=== PATIENT | female | born 1955 | race Caucasian/White ===

== ENCOUNTER 2018-06-14 05:31 | Inpatient (IN) | payer OTHER ==
[2018-06-14] MEDS ORDERED: NS 1,000 ML IV ONE ×2 (05:37→05:43)
[2018-06-14] MEDS ORDERED: ONDANSETRON 4 MG/2 ML VIAL IVP ONE (05:37)
--- NOTE | 2018-06-14 05:39 | EDPHY ---
H & P Stated Complaint: Vomiting since last night, epigastric abd pain Time Seen by Provider: 06/14/18 05:39 HPI/ROS: HPI CHIEF COMPLAINT: Vomiting and abdominal pain. HISTORY OF PRESENT ILLNESS: Very pleasant 62-year-old female, presents emergency room with mid abdomen pain. She describes it as cramps. It is across her mid abdomen. Nonradiating she has nausea vomiting. She states this started around 9:00 p.m. Last night. Said persistent for 8-9 hours. Multiple episodes of vomiting. Denies any hematemesis. Denies diarrhea, denies chest pain or shortness of breath. She complains of crampy pain mid abdomen. Patient describes abdominal pain 12/02. She states she ate a salad and roast beef last night. She thinks she may have a viral illness. Past Medical History: Depression Past Surgical History: Appendectomy Social History: Denies drugs alcohol tobacco. Family History: Noncontributory ROS REVIEW OF SYSTEMS: 10 Systems were reviewed and negative with the exception of the elements mentioned in the history of present illness. Exam Constitutional vital signs stable however uncomfortable, triage nursing summary reviewed, vital signs reviewed, awake/alert. Eyes normal conjunctivae and sclera, EOMI, PERRLA. HENT normal inspection, atraumatic, moist mucus membranes, no epistaxis, neck supple/ no meningismus, no raccoon eyes. Respiratory clear to auscultation bilaterally, normal breath sounds, no respiratory distress, no wheezing. Cardiovascular rate normal, regular rhythm, no murmur, no edema, distal pulses normal. Gastrointestinal mild tender palpation mid abdomen. no rebound, no guarding, normal bowel sounds, no distension, no pulsatile mass. Genitourinary no CVA tenderness. Musculoskeletal no midline vertebral tenderness, full range of motion, no calf swelling, no tenderness of extremities, no meningismus, good pulses, neurovascularly intact. Skin pink, warm, & dry, no rash, skin atraumatic. Neurologic awake, alert and oriented x 3, AAOx3, moves all 4 extremities equally, motor intact, sensory intact, CN II-XII intact, normal cerebellar, normal vision, normal speech. Psychiatric normal mood/affect. Heme/Lymph/Immune no lymphadenopathy. Differential Diagnosis: Differential diagnosis includes but is not limited to and in no particular order: Bowel obstruction, appendicitis, gallbladder disease, diverticulitis, colitis, enteritis, perforated viscus, gastritis, GERD , esophagitis, urinary tract infection, pyelonephritis, kidney stones Medical Decision Making: Plan for this patient IV establishment IV fluid bolus , IV Dilaudid 0.5 mg for pain control, IV Zofran 4 mg for nausea, basic labs, CT scan abdomen pelvis with IV contrast to help delineate her abdominal pain. Re-evaluation: Patient complaining of epigastric abdominal pain. Her lipase is noted to be very elevated on her labs. This is where she has pain. CT scan abdomen pelvis with IV contrast: Faxed me by direct Radiology at time 7 :16 a.m., This shows likely acute pancreatitis with a 2 mm stone either in the distal common bile duct or accessory pancreatic duct but do no pancreatic or biliary ductal dilatation is seen. Cholelithiasis present without suggestion of cholecystitis. Additionally there is a 9.5 x 9.1 mm likely cyst in the process of the pancreas. Recommend MRI. I spoken consult with Gastroenterology Dr. Sanon. Discussed case the patient has elevated lipase over 20,000, concern for CBD stone. He will consult on the patient. Additionally hospitalist service will be consult. Patient be in admitted for pain control, acute pancreatitis. 7:37 a.m. patient re-evaluated receiving a 2nd dose of Dilaudid for pain control. Patient has lipase greater than 20,000, stone concerning for stuck in the CBD. I have cons the hospitalist service for admssion. Beatriz. Dr. Valdez. Source: Patient - Personal History Current Tetanus Diphtheria and Acellular Pertussis (TDAP): Yes - Medical/Surgical History Hx Asthma: No Hx Chronic Respiratory Disease: No Hx Diabetes: No Hx Cardiac Disease: No Hx Renal Disease: No Hx Cirrhosis: No Hx Alcoholism: No Hx HIV/AIDS: No Hx Splenectomy or Spleen Trauma: No Other PMH: Depression - Social History Smoking Status: Never smoked Constitutional: Initial Vital Signs Temperature (C) 36.6 C 06/14/18 05:32 Heart Rate 72 06/14/18 05:32 Respiratory Rate 16 06/14/18 05:32 Blood Pressure 157/74 H 06/14/18 05:32 O2 Sat (%) 100 06/14/18 05:32 O2 Delivery Mode Nasal Cannula O2 (L/minute) 1 Allergies/Adverse Reactions: No Known Allergies Allergy (Unverified 06/14/18 05:33) Home Medications: Medication Instructions Recorded FLUoxetine [Prozac 20 MG (*)] 60 mg PO DAILY 06/14/18 Ibuprofen [Motrin (*)] 400 mg PO Q6H PRN 06/14/18 lamoTRIgine [LamICTAL 100 MG (*)] 150 mg PO BID 06/14/18 Medical Decision Making - Data Points Laboratory Results: Laboratory Results 06/14/18 05:46 06/14/18 05:46 Medications Given: Enoxaparin Sodium (Lovenox) 40 mg SC DAILY ANGIE Stop: 12/11/18 08:59 Last Admin: 06/14/18 16:13 Dose: 40 mg Hydromorphone HCl (Dilaudid) 0.5 - 1 mg IVP Q2HRS PRN PRN Reason: Pain, Severe Unable to Take PO Stop: 06/24/18 08:49 Last Admin: 06/14/18 19:42 Dose: 1 mg Potassium Chloride/Sodium Chloride (Ns W/ 20 Kcl/L) 1,000 mls @ 100 mls/hr IV CONT ANGIE Stop: 12/11/18 08:59 Last Admin: 06/14/18 18:34 Dose: 1,000 mls Ondansetron HCl (Zofran) 4 mg IVP Q4HRS PRN PRN Reason: Nausea/Vomiting, Can't Take PO Stop: 12/11/18 08:49 Last Admin: 06/14/18 16:12 Dose: 4 mg Discontinued Medications Hydromorphone HCl (Dilaudid) 0.5 mg IVP EDNOW ONE Stop: 06/14/18 05:44 Last Admin: 06/14/18 05:53 Dose: 0.5 mg Hydromorphone HCl (Dilaudid) 1 mg IVP EDNOW ONE Stop: 06/14/18 07:32 Last Admin: 06/14/18 07:35 Dose: 1 mg Sodium Chloride (Ns) 1,000 mls @ 0 mls/hr IV EDNOW ONE; Wide Open PRN Reason: Protocol Stop: 06/14/18 05:38 Last Admin: 06/14/18 05:48 Dose: 1,000 mls Sodium Chloride (Ns) 1,000 mls @ 0 mls/hr IV ONCE ONE PRN Reason: Wide Open Stop: 06/14/18 05:44 Last Admin: 06/14/18 05:51 Dose: 1,000 mls Ondansetron HCl (Zofran) 4 mg IVP EDNOW ONE Stop: 06/14/18 05:38 Last Admin: 06/14/18 05:51 Dose: 4 mg Point of Care Test Results: Chemistry 06/14/18 05:55 POC Troponin I 0.01 ng/mL ng/mL (0.00-0.08) Departure - Departure Disposition: [facility] Inpatient Acute Clinical Impression: Abdominal pain Qualifiers: Abdominal location: epigastric Qualified Code(s): R10.13 - Epigastric pain Vomiting Qualifiers: Vomiting type: unspecified Vomiting Intractability: non-intractable Nausea presence: with nausea Qualified Code(s): R11.2 - Nausea with vomiting, unspecified Pancreatitis Qualifiers: Chronicity: acute Pancreatitis type: other Acute pancreatitis complication: unspecified Qualified Code(s): K85.80 - Other acute pancreatitis without necrosis or infection Condition: Good
[2018-06-14] MEDS ORDERED: HYDROmorphONE/DILAUDID 2 MG/ML INJ IVP ONE ×2 (05:43→07:31)
[2018-06-14] MEDS ORDERED: HYDROmorphONE/DILAUDID 1 MG/ML INJ ONE (05:47)
[2018-06-14 05:58] LABS: PLATELET COUNT 337 10^3/uL (150-400)
[2018-06-14 06:09] LABS: INR 1.03 (0.83-1.16); PROTIME(PATIENT) 13.1 SEC (12.0-15.0)
[2018-06-14] MEDS ORDERED: IOPAMIDOL (ISOVUE-300) 100 ML BTL ONE (06:25)
[2018-06-14] MEDS ORDERED: HYDROmorphONE/DILAUDID 1 MG/ML INJ IVP PRN (08:50)
[2018-06-14] MEDS ORDERED: LORazepam 2 MG/ML INJ IVP PRN (08:50)
[2018-06-14] MEDS ORDERED: PROMETHAZINE HCL 25 MG/ML INJ IVP PRN (08:50)
[2018-06-14] MEDS ORDERED: ACETAMINOPHEN 650 MG SUPP PR PRN (08:50)
[2018-06-14] MEDS: NS W/ 20 KCl/L 1,000 ML IV SCH ×2 (09:45→18:34)
[2018-06-14] MEDS: HYDROmorphONE/DILAUDID 1 MG/ML INJ IVP PRN ×3 (11:25→19:42)
[2018-06-14] MEDS: ONDANSETRON 4 MG/2 ML VIAL IVP PRN (16:12)
[2018-06-14] MEDS: ENOXAPARIN 40 MG/0.4 ML SYR SC SCH (16:13)
--- NOTE | 2018-06-14 17:25 | GHP ---
[f rep st] HISTORY AND PHYSICAL DATE OF ADMISSION: 06/14/2018 CHIEF COMPLAINT: Epigastric pain. HISTORY OF PRESENT ILLNESS: The patient is a pleasant 62-year-old female with a past medical history of depression who presented to the [facility] Room on 06/14/2018, with com plaints of epigastric pain, nausea, and vomiting. Her symptoms started approximately 9 p.m. the even ing prior. CT imaging of her abdomen revealed evidence of acute gallstone pancreatitis with associat ed cholelithiasis and choledocholithiasis. Her pain was controlled with IV Dilaudid. Gastroenterolo gy was consulted and she is being admitted for bowel rest, IV fluids, and pain control. Her lipase w as notable for being over 20,000. PAST MEDICAL HISTORY: Depression. PAST SURGICAL HISTORY: Appendectomy, bilateral hip replacements. MEDICATIONS: Prozac 60 mg daily, Lamictal 150 mg twice a day. ALLERGIES: No known drug allergies. FAMILY HISTORY: Mother and Father both . No family history of gallbladder disease. SOCIAL HISTORY: Patient is nonsmoker and does not drink alcohol. REVIEW OF SYSTEMS: CONSTITUTIONAL: No complaints of any subjective fevers or chills. ENT: No rece nt upper respiratory illnesses. CARDIOVASCULAR: No complaints of any chest pains, palpitations, or syncopal episodes. RESPIRATORY: No complaints shortness of breath or productive cough. GI: Positi ve for nausea and nonbloody emesis, as well as epigastric pain. No diarrhea or bloody stools. : No report of any difficulty with urination. NEUROLOGIC: No complaints of any headaches or focal wea kness. HEMATOLOGIC: No history of any easy bruising or petechia. PSYCHIATRIC: History of depressi on on SSRI therapy. ENDOCRINE: No history of polyuria or heat intolerance. SKIN: No skin rashes o r ecchymoses. MUSCULOSKELETAL: No focal joint pains or swelling. PHYSICAL EXAM: VITAL SIGNS: Temperature 36.8, blood pressure 133/75, heart rate 94, respirations 16 , satting 92% on 1 L nasal cannula. GENERAL: Patient appears comfortable. She is awake, alert, con versant, no acute distress. HEENT: Extraocular movements intact. No scleral icterus is appreciated . NECK: Supple. No thyroid enlargement noted. CHEST: Clear to auscultation with normal respirato ry effort. HEART: Regular rate and rhythm. No murmurs. ABDOMEN: Tender with palpation at the epi gastrium, nondistended, soft. Bowel sounds diminished. : No Healy catheter in place. EXTREMITIE S: No significant pitting edema. NEUROLOGIC: Cranial nerves 2-12 appear grossly intact with 5/5 st rength in extremities. LABS: White blood cell count 15, hemoglobin 11, platelets 337. Sodium 140, potassium 3.7, chloride 105, bicarb 22, BUN 19, creatinine 0.8, glucose 227. INR 1.0. Lipase greater than 20,000. Troponin 0.01. AST 23, ALT 22, alk phos 53, bilirubin is 0.7. Urinalysis with 1+ blood. IMAGING: As detailed above. ASSESSMENT/PLAN: 1. Pancreatitis: Gallstone related. Patient's imaging shows a distal common bile duct stone. [place] [facility] has been consulted for further recommendations. Otherwise, continue with bowel rest, no thing by mouth status, intravenous fluids, and pain control. 2. Pancreatic lesion: Will further evaluate with MRI with and without contrast as recommended. 3. Leukocytosis: Suspect reactive. Monitor for fevers. Trend overnight. 4. Depression: Will anticipate resuming oral Lamictal and Prozac once tolerating a diet. 5. Deep venous thrombosis prophylaxis: Lovenox. DISPOSITION: I will admit her under inpatient status. Anticipate she will be here for 3 to 5 days f or bowel rest, IV fluids, and pain control, and escalating her diet. /[id number]/MODL
--- NOTE | 2018-06-14 18:20 | PDMN ---
Medical Necessity Medical necessity: Pt meets inpt criteria per MD order and MCG M-250, Pancreatitis, 2 days. 62 y/o presenting w/epigastic pain, N/V, admitted w/ pancreatitis, CT imaging shows evidence of acute gallstone pancreatitis w/ associated cholelithiasis and choledocholithiasis, distal common bile duct stone and pancreatic lesion which will be further evaluated w/MRI, Lipase>20, 000. GI consult, IVF, NPO, bowel rest, IV Dilaudid for pain control. Anticipate> 2MN for futher testing and management of above.
--- NOTE | 2018-06-14 22:20 | GCON ---
[f rep st] CONSULTATION GI CONSULTATION DATE OF CONSULTATION: 06/14/2018 REQUESTING PHYSICIAN: Tam Valdez MD. REASON FOR CONSULTATION: Acute pancreatitis with cholelithiasis, rule out choledocholithiasis. HISTORY OF PRESENT ILLNESS: Neeilma is a 62-year-old female with chronic depression, otherwise in [facility], who was admitted to the hospital early this morning after acute onset of epigastric abdomin al pain, nausea and vomiting starting approximately [address] scan of the abdomen early this morning revealed multiple calcified gallstones in the gallbladder, with a 4 mm calcification in the head of the pancreas compatible with a distal common bile duct stone. There were peripancreatic inflammatory changes suggestive of acute pancreatitis, with a 9 x 9.5 mm low-density lesion in the un cinate process of the pancreas compatible with a cyst. There was no free fluid in the abdomen. Ther e were bilateral hip arthroplasties noted. The patient was noted to have a white count of 15.25 and a lipase of greater than 20,000. She has denied any abdominal pain or other GI symptoms leading up t o this episode. She does not drink alcohol or smoke tobacco. MEDICATIONS: Prior to admission, Prozac 60 mg p.o. daily, Lamictal 150 mg p.o. twice daily. ALLERGIES: No known drug allergies. PAST MEDICAL HISTORY: Significant for depression. PAST SURGICAL HISTORY: Significant for appendectomy and bilateral hip replacements. She states her last colonoscopy was approximately 20 years ago, which she states was normal. FAMILY HISTORY: Negative for GI malignancies or gallbladder disease. SOCIAL HISTORY: She is nonsmoker and nondrinker. REVIEW OF SYSTEMS: Negative for comprehensive review of systems, other than the symptoms as noted in the HPI. PHYSICAL EXAMINATION: VITAL SIGNS: Temperature 37.1 Celsius, pulse 107 regular, blood pressure 154/ 84, respiratory rate 18, O2 saturation 95% on 1 L per nasal cannula. GENERAL: The patient is a well -developed, well-nourished female lying in bed in no apparent distress. INTEGUMENT: Clear. HEENT: Head atraumatic, normocephalic. Pupils equal, round, reactive to light. EOMs intact. Sclerae are nonicteric. Nares patent. Mucous membranes moist. Dentition good. NECK: Supple. Trachea midline . LYMPHATICS: No cervical or axillary adenopathy palpated. PULMONARY: Lungs clear to percussion a nd auscultation. CARDIOVASCULAR: Regular rhythm and rate. Normal S1, S2, without murmur. Peripher al pulses strong bilaterally. No pedal edema. GASTROINTESTINAL: Abdomen supple. Positive bowel so unds, though decreased. No liver edge or spleen tip palpable. Mild tenderness in the periumbilical area to deep palpation, without palpable mass or rebound. No fluid or wave noted. EXTREMITIES: Wit hout deformity. NEURO: Patient alert and oriented x3. No focal neurologic deficits. LABS: White count 15.26, hemoglobin 11.4, hematocrit 35.4, RDW 13.8, platelets 337,000. Pro-time 13 .1, INR 1.03, PTT 25.5. Electrolytes normal. BUN 19, creatinine 0.8, total bilirubin 0.7, conjugate d bilirubin 0.2, unconjugated 0.5, AST 23, ALT 22, ALP 53, lipase greater than 20,000. CT scan of the abdomen revealed multiple calcified gallstones in the gallbladder, without gallbladder wall thickening. 4 mm calcification in the head of the pancreas as well as a 9 x 9.5 mm low-density lesion in the uncinate process of the pancreas consistent with a cyst. Inflammatory changes around the pancreas consistent with acute pancreatitis. IMPRESSION: 1. Acute gallstone pancreatitis with question of distal common bile duct stone versus calcification in the head of the pancreas. No biliary dilatation noted on CT scan and normal liver enzymes makes r etained common bile duct stone unlikely. 2. Cholelithiasis with calcified stones. 3. Depression. RECOMMENDATIONS: 1. MRCP in a.m. 2. Serial lipase and LFTs. 3. May have sips of clears, otherwise n.p.o. 4. Will follow with you. /[id number]/MODL
[2018-06-15 04:40] LABS: PLATELET COUNT 295 10^3/uL (150-400)
--- NOTE | 2018-06-15 09:27 | ASMTCMCOM ---
CM Note CM Note Notes: Met with Pts and chart reviewed for discharge. Neelima is a 62 years old admitted with c/o epigastric pain, N, & V starting evening 06/13. CT shows Gall stones, pancreatitis, and cholelithiasis. She is on IV fluids, pain control meds and bowel rest for 3-5days per MD. Pt has a history of depression and is on Prozac with Lamictal, had bilateral hip replacements. Pt lives alone in [place], she has a Son Víctor in [place] but she says "He's useless" and a good friend Leslie who brought her to the hospital. CM available for needs. PLAN: home Independently Date Signed: 06/15/2018 09:27 AM Electronically Signed By:Tierra Amos
[2018-06-15] MEDS ORDERED: GADOBUTROL 10 ML VIAL IVP ONE (09:52)
[2018-06-15] MEDS: FLUoxetine 20 MG CAP PO SCH (10:02)
[2018-06-15] MEDS: lamoTRIgine 100 MG TAB PO SCH ×2 (10:02→20:26)
[2018-06-15] MEDS: HYDROmorphONE/DILAUDID 1 MG/ML INJ IVP PRN ×2 (10:26→15:52)
--- NOTE | 2018-06-15 15:01 | SOAPPROG ---
SOFIOR Progress Note Assessment/Plan: Assessment: 1. Probable gallsone pancreatitis, clinically improved. 2. ? small distal CBD stone without biliary obstruction. 3. Abnormal pancreatic duct, differential diagnosis is pancreatic divisum vs cystadenoma. 4. Leukocytosis likely secondary to pancreatitis albeit increased today. Plan: 1. Continue NPO with sips of water. 2. Serial WBC and Lipase. 3. Will discuss MRCP results the Dr Langston concerning EUS/ERCP during this admission. 4. Would recommend lap erick when pancreatitis resolves. Coel Sanon MD [phone] 06/15/18 14:56 Subjective: CC: Pancreatitis, Interval HPI: Patient without N/V or significant abdominal pain. C/O most neck pain today. Objective: Vital Signs Temp Pulse Resp BP Pulse Ox 36.6 C 77 18 132/69 H 90 L 06/15/18 08:00 06/15/18 12:00 06/15/18 12:00 06/15/18 12:00 06/15/18 12:00 Laboratory Results 06/15/18 04:20 06/15/18 04:20 06/14/18 06/15/18 06/16/18 05:59 05:59 05:59 Intake Total 1140 Balance 1140 PT 13.1 SEC (12.0-15.0) 06/14/18 05:46 INR 1.03 (0.83-1.16) 06/14/18 05:46 Laboratory Tests 06/14/18 06/15/18 05:46 04:20 Total Bilirubin 0.7 0.7 AST 23 21 ALT 22 25 Alkaline Phosphatase 53 47 Lipase > 30379 H > 4000 H Physical Exam - Physical Exam General Appearance: WD/WN, alert, no apparent distress Respiratory: lungs clear, normal breath sounds Cardiac/Chest: regular rate, rhythm Abdomen: soft (mildly tender in epigastrium), distended (Mildly) Skin: normal color, warm/dry Neuro/Psych: alert, normal mood/affect, oriented x 3 ICD10 Worksheet Patient Problems: Problems Problem Status Onset Abdominal pain Acute Pancreatitis Acute Vomiting Acute
--- NOTE | 2018-06-15 16:40 | HOSPPROG ---
Hospitalist Progress Note Assessment/Plan: Subjective Follow-up on suspected gallstone pancreatitis. No acute events overnight. Patient states her abdominal symptoms are much improved in overall feeling much better. No nausea or vomiting her. She does come back from MRI at the time of my evaluation. Objective Vital signs as detailed below Physical exam General-awake alert conversant no acute distress, sitting in a chair at the bedside Heart-regular rate and rhythm no murmurs Lungs-Clear to auscultation with normal respiratory effort Abdomen-be soft, nondistended, she tolerated more pressure at the epigastrium than yesterday's exam -no Healy catheter in place Extremities-no significant pitting edema or calf pain with palpation Skin-no concerning skin rashes noted Labs as detailed below Assessment and plan Pancreatitis-suspected gallstone. Probable 3 mm stone noted in the common bile duct at the level duodenum. Will review with Gastroenterology regarding the recommendation for ERCP. Pancreatic lesion-endoscopic ultrasound to be discussed. Leukocytosis-increased overnight but with no fevers. Clinically without any worsening either. Suspecting reactive to pancreatitis. Monitor closely. Depression/anxiety-worsened anxiety this morning. Oral medications resumed. DVT prophylaxis-Lovenox. Disposition-I would anticipate she would be able to be discharged home once medically cleared. Objective: Vital Signs Temp Pulse Resp BP Pulse Ox 36.6 C 82 18 139/70 H 90 L 06/15/18 08:00 06/15/18 16:00 06/15/18 16:00 06/15/18 16:00 06/15/18 16:00 Laboratory Results 06/15/18 04:20 06/15/18 04:20 06/14/18 06/15/18 06/16/18 05:59 05:59 05:59 Intake Total 1140 Balance 1140 PT 13.1 SEC (12.0-15.0) 06/14/18 05:46 INR 1.03 (0.83-1.16) 06/14/18 05:46 ICD10 Worksheet Patient Problems: Problems Problem Status Onset Abdominal pain Acute Pancreatitis Acute Vomiting Acute
[2018-06-15] MEDS: ENOXAPARIN 40 MG/0.4 ML SYR SC SCH (17:11)
[2018-06-15] MEDS: NS W/ 20 KCl/L 1,000 ML IV SCH (20:24)
[2018-06-15] MEDS: ACETAMINOPHEN 325 MG TAB PO PRN (20:26)
[2018-06-16] MEDS: ACETAMINOPHEN 325 MG TAB PO PRN ×2 (03:12→08:55)
[2018-06-16 05:23] LABS: PLATELET COUNT 236 10^3/uL (150-400)
[2018-06-16] MEDS: NS W/ 20 KCl/L 1,000 ML IV SCH ×2 (05:54→20:57)
[2018-06-16] MEDS ORDERED: POTASSIUM CL 10 MEQ TAB PO ONE ×3 (07:31→21:00)
[2018-06-16] MEDS: POTASSIUM Cl (KCl) 100 ML IV SCH ×2 (08:40→09:49)
[2018-06-16] MEDS: FLUoxetine 20 MG CAP PO SCH (08:42)
[2018-06-16] MEDS: lamoTRIgine 100 MG TAB PO SCH ×2 (08:42→20:58)
[2018-06-16] MEDS: ENOXAPARIN 40 MG/0.4 ML SYR SC SCH (08:45)
[2018-06-16] MEDS ORDERED: IOTHALAMATE MEG (CONRAY) 50 ML VIAL IV ONE (12:36)
[2018-06-16] MEDS ORDERED: LR 1,000 ML IV ONE (13:00)
[2018-06-16] MEDS ORDERED: INDOMETHACIN 50 MG SUPP PR ONE (13:10)
--- NOTE | 2018-06-16 13:26 | PDANEPAE ---
ANE Past Medical History - Cardiovascular History Hx Hypertension: No Hx Arrhythmias: No Hx Chest Pain: No Hx Coronary Artery / Peripheral Vascular Disease: No Hx CHF / Valvular Disease: No Hx Palpitations: No - Pulmonary History Hx COPD: No Hx Asthma/Reactive Airway Disease: No Hx Recent Upper Respiratory Infection: No Hx Oxygen in Use at Home: No Hx Sleep Apnea: Yes Sleep Apnea Screening Result - Last Documented: Positive Pulmonary History Comment: Refuses CPAP - Endocrine History Hx Diabetes: No Hypothyroid: No Hyperthyroid: No Obesity: yes, mild - Renal History Hx Renal Disorders: No - Liver History Hx Hepatic Disorders: No - Neurological & Psychiatric Hx Hx Neurological and Psychiatric Disorders: Yes - Chronic Pain History Chronic Pain: Yes ANE Review of Systems Review of Systems: - Exercise capacity Exercise capacity: >=4 METS ANE Patient History - Allergies Allergies/Adverse Reactions: No Known Allergies Allergy (Unverified 06/14/18 05:33) - Home Medications Home Medications: FLUoxetine [Prozac 20 MG (*)] 60 mg PO DAILY 06/14/18 [Last Taken 06/13/18 10:00 ] Ibuprofen [Motrin (*)] 400 mg PO Q6H PRN 06/14/18 [Last Taken 06/13/18] lamoTRIgine [LamICTAL 100 MG (*)] 150 mg PO BID 06/14/18 [Last Taken 06/13/18 10 :00] - NPO status NPO Since - Liquids (Date): 06/16/18 NPO Since - Liquids (Time): 12:30 NPO Since - Solids (Date): 06/12/18 NPO Since - Solids (Time): 00:00 - Anes Hx Anes Hx: no prior problems - Smoking Hx Smoking Status: Never smoked - Alcohol Use Alcohol Use: Rarely - Family Anes Hx Family Anes Hx: neg - N/A ANE Labs/Vital Signs - Labs Result Diagrams: 06/16/18 04:25 06/16/18 04:25 - Vital Signs Blood Pressure: 143/80 Heart Rate: 68 Respiratory Rate: 16 O2 Sat (%): 92 Height: 157.48 cm Weight: 76.204 kg ANE Physical Exam - Airway Neck exam: FROM Mallampati Score: Class 2 Mouth exam: normal dental/mouth exam - Pulmonary Pulmonary: no respiratory distress, no rales or rhonchi, clear to auscultation - Cardiovascular Cardiovascular: regular rate and rhythym, systolic murmur - ASA Status ASA Status: II ANE Anesthesia Plan Anesthesia Plan: general endotracheal anesthesia Total IV Anesthesia: No
[2018-06-16] MEDS ORDERED: fentaNYL 100 MCG/2 ML INJ ONE (13:29)
[2018-06-16] MEDS ORDERED: PROPOFOL 200 MG/20 ML VIAL ONE (13:29)
[2018-06-16] MEDS ORDERED: LIDOCAINE 2% 2 ML INJ ONE ×2 (13:30)
[2018-06-16] MEDS ORDERED: ROCURONIUM 50 MG/5 ML VIAL ONE (13:32)
[2018-06-16] MEDS ORDERED: SUCCINYLCHOLINE CHLORIDE 200 MG/10 ML SYR IVP ONE (13:36)
[2018-06-16] MEDS ORDERED: PHENYLEPHRINE 10 MG/ML SDV ONE (13:55)
[2018-06-16] MEDS ORDERED: HYDROCODONE/APAP 5/325 TAB PO PRN (14:00)
[2018-06-16] MEDS ORDERED: LR 500 ML IV PRN (14:00)
[2018-06-16] MEDS ORDERED: PROMETHAZINE HCL 25 MG/ML INJ IVP PRN (14:00)
[2018-06-16] MEDS ORDERED: NALOXONE HCL 0.4 MG/ML INJ IVP PRN (14:00)
[2018-06-16] MEDS ORDERED: ONDANSETRON 4 MG/2 ML VIAL IVP PRN (14:00)
[2018-06-16] MEDS ORDERED: oxyCODONE IR 5 MG TAB PO PRN (14:00)
[2018-06-16] MEDS ORDERED: ACETAMINOPHEN 500 MG TAB PO PRN (14:00)
[2018-06-16] MEDS ORDERED: PHENYLEPHRINE HCL 100 MCG/ML SYR IVP PRN (14:00)
[2018-06-16] MEDS ORDERED: fentaNYL 100 MCG/2 ML INJ IVP PRN (14:00)
[2018-06-16] MEDS ORDERED: SUGAMMADEX SODIUM 200 MG/2 ML VIAL IVP ONE (14:29)
--- NOTE | 2018-06-16 14:53 | GIREPORT ---
[facility] Surgical Services - Endoscopy Department Patient Name: Neelima Noland Procedure Date: 06/16/2018 1:07 PM Patient Type: Inpatient Attending MD/ ER Physician: Cole Sanon MD Procedure: ERCP Indications: Bile duct stone(s), Abnormal abdominal MRI(? pancreatic divisum, ? bile duct irregularity. Providers: Cole Sanon MD Medicines: General Anesthesia, Indomethacin 100 mg ID Complications: No immediate complications. Description of Procedure: After obtaining informed consent, the scope was passed under direct vis ion. Throughout the procedure, the patient's blood pressure, pulse, and oxyg en saturations were monitored continuously. The Duodenalscope was introduc ed through the mouth, and advanced to the duodenum and used to inject cont rast into the bile duct. The ERCP was accomplished without difficulty. The patient tolerated the procedure well. I personally interpreted the fluo scopy without assisstance and obtained several permittant images. Findings: The upper GI tract was traversed under direct vision without detailed examination. The major papilla was normal. The minor papilla was not fo und. The bile duct was deeply cannulated with the short-nosed traction sphincterotome. Contrast was injected. I personally interpreted the cookie e duct images. There was brisk flow of contrast through the ducts. Image quality was excellent. Contrast extended to the main bile duct. Contras t extended to the gallbladder. Contrast extended to the bifurcation. Cont rast extended to the hepatic ducts. Opacification of the main bile duct, lef t main hepatic duct and right main hepatic duct was successful. The maxim um diameter of the ducts was 11 mm. The common bile duct contained one sto ne, which was 2 mm in diameter. An 11 mm biliary sphincterotomy was made wi th a braided traction (standard) sphincterotome using ERBE electrocautery. T here was no post-sphincterotomy bleeding. The biliary tree was swept with a 12 mm balloon starting at the upper third of the main bile duct, middle third of the main bile duct and lower third of the main duct. One stone was lucio antonio. No stones remained. Estimated Blood Loss: Estimated blood loss: none. Post Op Diagnosis: - The major papilla appeared normal. - Choledocholithiasis was found. Complete removal was accomplished by biliary sphincterotomy and balloon extraction. - A biliary sphincterotomy was performed. - The biliary tree was swept. No other abnormalities in the biliary josé luis e visualized. Recommendation: - [facility]. - Continue present medications. - Clear liquid diet today. - The findings and recommendations were discussed with the surgeon (Maribell Oh MD). Attending Participation: I personally performed the entire procedure. Cole Sanon MD Cole Sanon MD 06/16/2018 2:52:42 PM This report has been signed electronicallyCole Sanon MD Number of Addenda: 0 Note Initiated On: 06/16/2018 1:07 PM [email or web address]
--- NOTE | 2018-06-16 14:56 | SOAPPROG ---
ZACK Progress Note Assessment/Plan: Assessment: 62 FEMALE WITH GALLSTONE PANCREATITIS SP ERCP Plan:WILL ARRANGE LAP JAYLAN FOR THE AM 06/16/18 14:55 Objective: Vital Signs Temp Pulse Resp BP Pulse Ox 36.7 C 68 21 H 114/71 96 06/16/18 14:42 06/16/18 13:59 06/16/18 14:45 06/16/18 14:45 06/16/18 14:45 Laboratory Results 06/16/18 04:25 06/16/18 04:25 06/15/18 06/16/18 06/17/18 05:59 05:59 05:59 Intake Total 1140 1051 Balance 1140 1051 PT 13.1 SEC (12.0-15.0) 06/14/18 05:46 INR 1.03 (0.83-1.16) 06/14/18 05:46 ICD10 Worksheet Patient Problems: Problems Problem Status Onset Abdominal pain Acute Pancreatitis Acute Vomiting Acute
--- NOTE | 2018-06-16 15:03 | POSTANESTH ---
Post Anesthetic Evaluation Cardiovascular Status: Similar to Pre-Op Cond Respiratory Status: Similar to Pre-op Cond. Level of Consciousness/Mental Status: Can Participate in Eval Pain Control: Adequate, Prn Tx Ordered Nausea/Vomiting Control: Adequate, Prn Tx Ordered Complications Possibly Related to Anesthesia: None Noted
--- NOTE | 2018-06-16 16:42 | HOSPPROG ---
Hospitalist Progress Note Assessment/Plan: Subjective Follow-up on suspected gallstone pancreatitis. No acute events overnight. No nausea or vomiting and she feels like her pain is better. Case reviewed with Gastroenterology today and tentative plan for ERCP later today. We did discuss that she will need to have endoscopic ultrasound and likely looking at doing this in the next 1-2 weeks. Objective Vital signs as detailed below Physical exam General-awake alert conversant no acute distress, lying in bed Heart-regular rate and rhythm no murmurs Lungs-Clear to auscultation with normal respiratory effort Abdomen-be soft, nondistended, she tolerated pressure at the epigastrium -no Healy catheter in place Extremities-no significant pitting edema or calf pain with palpation Skin-no concerning skin rashes noted Labs as detailed below Assessment and plan Pancreatitis-suspected gallstone. Probable 3 mm stone noted in the common bile duct at the level duodenum on MRI. ERCP plan for today. Pancreatic lesion-endoscopic ultrasound when able. Leukocytosis-trending downward. No fevers. Clinically without any worsening either. Suspecting reactive to pancreatitis. Monitor closely. Depression/anxiety-worsened anxiety this morning. Oral medications resumed. DVT prophylaxis-Lovenox. Disposition-I would anticipate she would be able to be discharged home once medically cleared. Objective: Vital Signs Temp Pulse Resp BP Pulse Ox 36.7 C 66 12 140/85 H 92 06/16/18 14:42 06/16/18 15:41 06/16/18 15:41 06/16/18 15:41 06/16/18 15:41 Laboratory Results 06/16/18 04:25 06/16/18 04:25 06/15/18 06/16/18 06/17/18 05:59 05:59 05:59 Intake Total 1140 1051 800 Balance 1140 1051 800 PT 13.1 SEC (12.0-15.0) 06/14/18 05:46 INR 1.03 (0.83-1.16) 06/14/18 05:46 ICD10 Worksheet Patient Problems: Problems Problem Status Onset Abdominal pain Acute Pancreatitis Acute Vomiting Acute
[2018-06-16] MEDS ORDERED: cefOXitin SODIUM 2 GM in NS 100 ML IV ONE (16:51)
[2018-06-16] MEDS: ONDANSETRON 4 MG/2 ML VIAL IVP PRN (16:53)
[2018-06-16] MEDS ORDERED: CEPACOL LOZENGE PO PRN (17:03)
--- NOTE | 2018-06-16 19:44 | SOAPPROG ---
ZACK Progress Note Assessment/Plan: Assessment: 62 FEMALE WITH GALLSTONE PANCREATITIS SP ERCP Plan:WILL ARRANGE LAP JAYLAN FOR THE AM 06/16/18 14:55 06/16/18 19:43 PATIENT RECOVERING FROM ERCP WITH REMOVAL OF COMMON DUCT STONE/RISKS AND OPTIONS FULLY DISCUSSED WITH THE PATIENT AND HER FAMILY WHO WISH TO PROCEED WITH LAP CHOLY IN THE A.M. LFTS OKAY/LIPASE DOWN TO 400 FROM 20,000 HEENT NONICTERIC CHEST CLEAR COR REGULAR RHYTHM ABDOMEN SOFT WITH NO REAL TENDERNESS AND POSITIVE BOWEL SOUNDS IMPRESSION GALLSTONE PANCREATITIS/PLAN IS LAP CHOLY PRIOR TO DISCHARGE RISKS AND OPTIONS BEEN FULLY DISCUSSED Objective: Vital Signs Temp Pulse Resp BP Pulse Ox 37.0 C 66 12 148/75 H 94 06/16/18 18:08 06/16/18 18:08 06/16/18 15:41 06/16/18 18:08 06/16/18 18:08 Laboratory Results 06/16/18 04:25 06/16/18 17:27 06/15/18 06/16/18 06/17/18 05:59 05:59 05:59 Intake Total 1140 1051 900 Balance 1140 1051 900 PT 13.1 SEC (12.0-15.0) 06/14/18 05:46 INR 1.03 (0.83-1.16) 06/14/18 05:46 ICD10 Worksheet Patient Problems: Problems Problem Status Onset Abdominal pain Acute Pancreatitis Acute Vomiting Acute
[2018-06-17 05:37] LABS: PLATELET COUNT 257 10^3/uL (150-400)
[2018-06-17] MEDS: ENOXAPARIN 40 MG/0.4 ML SYR SC SCH (07:40)
[2018-06-17] MEDS ORDERED: POTASSIUM CL 10 MEQ TAB PO ONE (07:45)
[2018-06-17] MEDS: lamoTRIgine 100 MG TAB PO SCH ×2 (08:32→21:37)
[2018-06-17] MEDS: FLUoxetine 20 MG CAP PO SCH (08:32)
--- NOTE | 2018-06-17 10:18 | PDANEPAE ---
ANE History of Present Illness gall stone pancreatitis ANE Past Medical History - Cardiovascular History Hx Hypertension: No Hx Arrhythmias: No Hx Chest Pain: No Hx Coronary Artery / Peripheral Vascular Disease: No Hx CHF / Valvular Disease: No Hx Palpitations: No - Pulmonary History Hx COPD: No Hx Asthma/Reactive Airway Disease: No Hx Recent Upper Respiratory Infection: No Hx Oxygen in Use at Home: No Hx Sleep Apnea: Yes Sleep Apnea Screening Result - Last Documented: Positive Pulmonary History Comment: Refuses CPAP - Endocrine History Hx Diabetes: No Hypothyroid: No Hyperthyroid: No Obesity: yes, mild - Renal History Hx Renal Disorders: No - Liver History Hx Hepatic Disorders: No - Neurological & Psychiatric Hx Hx Neurological and Psychiatric Disorders: Yes Neurological / Psychiatric History Comment: depression - GI History Gastrointestinal History Comment: gallstone pancreatitis - Chronic Pain History Chronic Pain: Yes ANE Review of Systems Review of systems is: negative Review of Systems: ANE Patient History - Allergies Allergies/Adverse Reactions: No Known Allergies Allergy (Unverified 06/14/18 05:33) - Home Medications Home medications: home medication list seen and reviewed Home Medications: FLUoxetine [Prozac 20 MG (*)] 60 mg PO DAILY 06/14/18 [Last Taken 06/13/18 10:00 ] Ibuprofen [Motrin (*)] 400 mg PO Q6H PRN 06/14/18 [Last Taken 06/13/18] lamoTRIgine [LamICTAL 100 MG (*)] 150 mg PO BID 06/14/18 [Last Taken 06/13/18 10 :00] - NPO status NPO Since - Liquids (Date): 06/16/18 NPO Since - Liquids (Time): 12:30 NPO Since - Solids (Date): 06/12/18 NPO Since - Solids (Time): 00:00 - Anes Hx Anes Hx: no prior problems - Smoking Hx Smoking Status: Never smoked - Alcohol Use Alcohol Use: Rarely - Family Anes Hx Family Anes Hx: none ANE Labs/Vital Signs - Labs Result Diagrams: 06/17/18 04:35 06/17/18 04:35 - Vital Signs Blood Pressure: 120/67 Heart Rate: 70 Respiratory Rate: 16 O2 Sat (%): 95 Height: 157.48 cm Weight: 76.204 kg ANE Physical Exam - Airway Neck exam: FROM Mallampati Score: Class 2 Mouth exam: normal dental/mouth exam - Pulmonary Pulmonary: no respiratory distress, clear to auscultation - Cardiovascular Cardiovascular: regular rate and rhythym, no murmur, rub, or gallop - ASA Status ASA Status: III ANE Anesthesia Plan Anesthesia Plan: general endotracheal anesthesia
[2018-06-17] MEDS ORDERED: HEPARIN 1000 UNIT/1 ML MDV ONE (10:39)
[2018-06-17] MEDS ORDERED: BUPIVACAINE 0.5% 30 ML SDV ONE (10:39)
[2018-06-17] MEDS ORDERED: ceFAZolin 1 GM/5 ML SYR ONE (10:39)
[2018-06-17] MEDS ORDERED: PROPOFOL 200 MG/20 ML VIAL ONE (11:22)
[2018-06-17] MEDS ORDERED: LIDOCAINE 2% 2 ML INJ ONE ×2 (11:22)
[2018-06-17] MEDS ORDERED: fentaNYL 250 MCG/5 ML INJ ONE (11:22)
[2018-06-17] MEDS ORDERED: ROCURONIUM 50 MG/5 ML VIAL ONE (11:33)
[2018-06-17] MEDS ORDERED: DEXAMETHASONE 4 MG/ML VIAL ONE (11:33)
[2018-06-17] MEDS ORDERED: ONDANSETRON 4 MG/2 ML VIAL ONE (11:33)
[2018-06-17] MEDS ORDERED: KETOROLAC 30 MG/1 ML SDV ONE (12:14)
[2018-06-17] MEDS ORDERED: SUGAMMADEX SODIUM 200 MG/2 ML VIAL IVP ONE (12:15)
[2018-06-17] MEDS ORDERED: NALOXONE HCL 0.4 MG/ML INJ IVP PRN (12:18)
[2018-06-17] MEDS ORDERED: fentaNYL 100 MCG/2 ML INJ IVP PRN (12:18)
--- NOTE | 2018-06-17 12:19 | POSTANESTH ---
Post Anesthetic Evaluation Cardiovascular Status: Normal, Stable Respiratory Status: Normal, Stable Level of Consciousness/Mental Status: Can Participate in Eval Pain Control: Adequate, Prn Tx Ordered Nausea/Vomiting Control: Adequate, Prn Tx Ordered Complications Possibly Related to Anesthesia: None Noted
--- NOTE | 2018-06-17 12:29 | POSTOPPROG ---
Post Op Note Date of Operation: 06/17/18 Surgeon: Edil Oh Furniture Finisher Apprentice: Alisia Hyatt Anesthesiologist: Viky Knox Anesthesia: GET(General Endotracheal) Pre-op Diagnosis: gallstone pancreatitis s/p ercp, cholelithasis Post-op Diagnosis: same Procedure: lap erick Findings: gallbladder wall edema with tons of stones Inf/Abcess present in the surg proc area at time of surgery?: No EBL: Minimal Complications: none Bowel Protocol: N/A Clean Closure Performed: N/A Specimen(s): gallbladder to pathology
[2018-06-17] MEDS ORDERED: HYDROCODONE/APAP 5/325 TAB PO PRN (12:30)
--- NOTE | 2018-06-17 14:06 | ASMTCMCOM ---
CM Note CM Note Notes: 06/17/2018 Case Management Note Reviewed chart, discussed with RN. Pt had lap erick today for gallstone pancreatits s/p ERCP and cholelithasis. There are no therapy evals ordered today. Case Management d/c poc: anticipating independent with follow up as directed. Case Management to follow. Date Signed: 06/17/2018 02:05 PM Electronically Signed By:Ambar Woods RN
--- NOTE | 2018-06-17 16:36 | SOAPPROG ---
SOAP Progress Note Assessment/Plan: Assessment: 1. Gallstone pancreatitis, clinically resolved 2. S/P ERCP, Papillotomy and CBD stone removal. 3. Abnormal pancreatic duct, differential diagnosis is pancreatic divisum vs cystadenoma of uncinate process of pancreas. 4. S/P cholecystectomy today. Plan: 1. Post op care per Dr. Oh. 2. F/U EUS in one month with Dr Langston. Cole Sanon MD [phone] 06/17/18 16:32 Subjective: CC: Cholelithiasis, s/p ERCP and clearance of CBD stone. Interval HPI: Patient feeling better this am. Now S/P lap erick. Objective: Vital Signs Temp Pulse Resp BP Pulse Ox 37.0 C 71 16 135/75 H 87 L 06/17/18 16:26 06/17/18 16:26 06/17/18 16:26 06/17/18 16:26 06/17/18 16:26 Laboratory Results 06/17/18 04:35 06/17/18 04:35 06/16/18 06/17/18 06/18/18 05:59 05:59 05:59 Intake Total 1051 1996 600 Output Total 5 Balance 1051 1996 595 PT 13.1 SEC (12.0-15.0) 06/14/18 05:46 INR 1.03 (0.83-1.16) 06/14/18 05:46 Physical Exam - Physical Exam General Appearance: no apparent distress Respiratory: lungs clear, normal breath sounds Cardiac/Chest: regular rate, rhythm Abdomen: normal bowel sounds, non-tender, soft Skin: normal color, warm/dry Neuro/Psych: normal mood/affect ICD10 Worksheet Patient Problems: Problems Problem Status Onset Abdominal pain Acute Pancreatitis Acute Vomiting Acute
--- NOTE | 2018-06-17 17:45 | HOSPPROG ---
Hospitalist Progress Note Assessment/Plan: Subjective Follow-up on suspected gallstone pancreatitis. No acute events overnight. She had ERCP yesterday and cholecystectomy done today. Postoperatively she appears to be doing quite well and asking about home tomorrow. Objective Vital signs as detailed below Physical exam General-awake alert conversant no acute distress, lying in bed Heart-regular rate and rhythm no murmurs Lungs-Clear to auscultation with normal respiratory effort Abdomen-be soft, nondistended, she tolerated pressure at the epigastrium Extremities-no significant pitting edema or calf pain with palpation Skin-no concerning skin rashes noted Labs as detailed below Assessment and plan Pancreatitis-suspected gallstone. Probable 3 mm stone noted in the common bile duct at the level duodenum on MRI. Here CP done yesterday and patient had cholecystectomy today for multiple stones noted in gallbladder. Possibly could be discharged home if she is able to advance her diet with the plan for short- term follow up with Gastroenterology for endoscopic ultrasound. Pancreatic lesion-endoscopic ultrasound when able. Next week at the earliest. Leukocytosis-trending downward. No fevers. Clinically without any worsening either. Suspecting reactive to pancreatitis. Monitor closely. Depression/anxiety-worsened anxiety this morning. Oral medications resumed. DVT prophylaxis-Lovenox. Disposition-I would anticipate she would be able to be discharged home once medically cleared. Objective: Vital Signs Temp Pulse Resp BP Pulse Ox 36.8 C 63 16 123/70 H 96 06/17/18 17:27 06/17/18 17:27 06/17/18 17:27 06/17/18 17:27 06/17/18 17:27 Laboratory Results 06/17/18 04:35 06/17/18 04:35 06/16/18 06/17/18 06/18/18 05:59 05:59 05:59 Intake Total 1051 1996 800 Output Total 5 Balance 1 1996 795 PT 13.1 SEC (12.0-15.0) 06/14/18 05:46 INR 1.03 (0.83-1.16) 06/14/18 05:46 ICD10 Worksheet Patient Problems: Problems Problem Status Onset Abdominal pain Acute Pancreatitis Acute Vomiting Acute
[2018-06-18] MEDS: NS W/ 20 KCl/L 1,000 ML IV SCH (00:14)
[2018-06-18] MEDS: ENOXAPARIN 40 MG/0.4 ML SYR SC SCH (09:42)
[2018-06-18] MEDS: ACETAMINOPHEN 325 MG TAB PO PRN (09:42)
[2018-06-18] MEDS: lamoTRIgine 100 MG TAB PO SCH (09:43)
[2018-06-18] MEDS: FLUoxetine 20 MG CAP PO SCH (09:43)
--- NOTE | 2018-06-18 10:56 | SOAPPROG ---
SOAP Progress Note Assessment/Plan: Assessment/Plan: 62 Y F c gallstone pancreatitis, cholelithiasis, s/p ERCP, lap erick. Doing well. Pain controlled. Tolerating diet. No N/V. Likely home today. Info added to d/c plan tab. S: eager to go home. O: alert, nad no jaundice no wob abd soft, inc cdi 06/18/18 10:55 Objective: Vital Signs Temp Pulse Resp BP Pulse Ox 36.4 C 71 18 119/74 93 06/18/18 08:00 06/18/18 08:00 06/18/18 08:00 06/18/18 08:00 06/18/18 08:00 Laboratory Results 06/17/18 04:35 06/17/18 04:35 06/17/18 06/18/18 06/19/18 05:59 05:59 05:59 Intake Total 1996 1150 2000 Output Total 5 Balance 1996 1145 2000 PT 13.1 SEC (12.0-15.0) 06/14/18 05:46 INR 1.03 (0.83-1.16) 06/14/18 05:46 ICD10 Worksheet Patient Problems: Problems Problem Status Onset Abdominal pain Acute Pancreatitis Acute Vomiting Acute
[2018-06-18 12:20] VITALS: BP 118/62
--- NOTE | 2018-06-18 13:23 | HOSPPROG ---
Hospitalist Progress Note Assessment/Plan: Pt is ready for d/c. Please refer to d/c summary Objective: Vital Signs Temp Pulse Resp BP Pulse Ox 36.9 C 63 16 118/62 92 06/18/18 12:00 06/18/18 12:00 06/18/18 12:00 06/18/18 12:00 06/18/18 12:00 Laboratory Results 06/17/18 04:35 06/17/18 04:35 06/17/18 06/18/18 06/19/18 05:59 05:59 05:59 Intake Total 1996 1150 2000 Output Total 5 Balance 1996 1145 2000 PT 13.1 SEC (12.0-15.0) 06/14/18 05:46 INR 1.03 (0.83-1.16) 06/14/18 05:46 ICD10 Worksheet Patient Problems: Problems Problem Status Onset Abdominal pain Acute Pancreatitis Acute Vomiting Acute
--- NOTE | 2018-06-18 13:27 | GOP ---
[f rep st] OPERATIVE REPORT DATE OF OPERATION: 06/17/2018 SURGEON: Edil Oh MD ANESTHESIOLOGIST: Dr. Mendez. PREOPERATIVE DIAGNOSIS: Gallstone pancreatitis. POSTOPERATIVE DIAGNOSIS: Gallstone pancreatitis. PROCEDURE PERFORMED: Laparoscopic cholecystectomy. FINDINGS: The patient was found to have an inflamed, enlarged gallbladder packed with multiple stone s. Ducts were small. DESCRIPTION OF PROCEDURE: Patient taken to the operating room where she received satisfactory genera l endotracheal anesthesia by Dr. Mendez. Placed in supine position. Prepped and draped in the usual s terile fashion. An infraumbilical incision was made. A Veress needle was inserted. Pneumoperitoneum w as established. A trocar was introduced. Laparoscope introduced. Good visualization was obtained. Thr ee other trocars were placed in the upper abdomen under direct vision. The gallbladder was elevated u p. Adhesions were taken down, exposing the full length of the gallbladder down to the cystic triangle . That was then carefully dissected free. A good clear view was established. With the cystic duct and cystic artery dissected free, both were multiply hemoclipped and divided, with care to avoid injury to the common bile duct which was clearly visualized. The peritoneum over the gallbladder was incised , and the gallbladder was dissected free from the bed and hepatic fossa and extracted through an uppe r midline port site. Hemostasis was assured. The wound was irrigated. The upper port site had to be d ilated for retrieval of the gallbladder. That site was closed with running 0-Vicryl suture for the fa scia and 4-0 Monocryl subcuticular stitch for the skin. All layers infiltrated with 0.5% Marcaine. Bl ood loss negligible. No. COMPLICATIONS.HANDBAG FRAMES INSPECTOR: Alisia Hyatt, PAC. /[id number]/MODL
--- NOTE | 2018-06-18 13:33 | PDDCSUM ---
Discharge Summary Discharge Summary: 62 yo female admitted with likely gallstone pancreatitis. She had ERCP on 06/16 and cholecystectomy on 06/17. Postoperatively she appears to be doing quite well. She has been cleared by surgery. She is tolerating a diet She needs f/u with GI for endoscopic us within the next 4 weeks. She will schedule an appt she needs f/u with her PCP next week and will obtain lab work at that time. DDX: Pancreatitis-suspected gallstone. Probable 3 mm stone noted in the common bile duct at the level duodenum on MRI. Here ERCP done and patient had cholecystectomy for multiple stones noted in gallbladder. Pancreatic lesion-endoscopic ultrasound when able. Next week at the earliest. Leukocytosis-trending downward. No fevers. Clinically without any worsening either. Suspecting reactive to pancreatitis. Monitor closely. WBC 16 on discharge Depression/anxiety-worsened anxiety this morning. Oral medications resumed. Transaminitis: mild elevated AST/ALT. repeat on f/u Exam: NAD AAOX3 RRR CTA B MILD MID EPIGASTRIC TENDERNESS, NO R/G MEDS: SEE MED REC TOTAL TIME SPENT ON D/C IS 35 MINS
--- NOTE | 2018-06-23 12:15 | GCON ---
[f rep st] CONSULTATION DATE OF CONSULTATION: 06/16/2018 HISTORY OF PRESENT ILLNESS: Patient is a 62-year-old female with gallstone pancreatitis. She just h ad an ERCP with removal of debris and a small stone. She has a gallbladder full of stones and will n eed a laparoscopic cholecystectomy. She has had recurrent symptoms over the last couple of years, bu t was not clear what they were from. She has never had pancreatitis before. PAST MEDICAL HISTORY: Includes some treatment for depression. She has had an appendectomy and bilat eral hip replacements. ALLERGIES: None. REVIEW OF SYSTEMS: Reveals no other major problems on a full 10-point review of systems, except as r elated to the HPI. MEDICATIONS: Prozac. SOCIAL HISTORY: Reveals she does not smoke. FAMILY HISTORY: Noncontributory. PHYSICAL EXAMINATION: GENERAL: An alert 62-year-old female in no acute distress. HEAD/NECK: Benig n without icterus or adenopathy. Neck supple. Full range of motion. No masses. CHEST: Clear and symmetric. CARDIAC: Regular rhythm. ABDOMEN: Soft. She has some tenderness and fullness in the r ight upper quadrant, but only minimally so. There are no obvious hernias. EXTREMITIES: Benign. Fu ll range of motion. Full pulses. NEUROLOGIC: Physiologic and symmetric. PSYCH: Exam reveals her to be alert, oriented, and cooperative. IMPRESSION: Gallstone pancreatitis. PLAN: Laparoscopic cholecystectomy. Risks and options have been fully discussed and she wishes to p sharda. /[id number]/MODL
== END 2018-06-18 14:27 | disposition home or self-care (01) | DRG 418 ==
LOC: F1N 08:33 → OBSVTOIN 08:58
PROVIDERS: ADMIT Internal Medicine; ATTEND Internal Medicine
PROC: 0FC98ZZ Extirpation of Matter from Common Bile Duct, Via Natural or Artificial Opening Endoscopic (ICD-10-PCS; 2018-06-16)
PROC: 0FT44ZZ Resection of Gallbladder, Percutaneous Endoscopic Approach (ICD-10-PCS; principal; 2018-06-17 11:15)
DX: K85.10 Biliary acute pancreatitis without necrosis or infection (principal); K80.64 Calculus of gallbladder and bile duct with chronic cholecystitis without obstruction; K86.89 Other specified diseases of pancreas; R74.0 Nonspecific elevation of levels of transaminase and lactic acid dehydrogenase [LDH]; D72.829 Elevated white blood cell count, unspecified; F41.8 Other specified anxiety disorders; Z96.643 Presence of artificial hip joint, bilateral
CPT/HCPCS: 84484-ER; 96374; A9585; J0330; J0694; J1100; J1170; J1650; J1885; J2060; J2370; J2405; J2704; J3010; J3480; Q9961; Q9967